=== PATIENT | male | born 1995 | race Caucasian/White ===

== ENCOUNTER 2019-02-23 22:39 | Emergency (ER) | payer SELFPAY ==
[~2019-02-23] VITALS: Ht 157.5 cm; Wt 60.9 kg
[2019-02-23 22:48] VITALS: Ht 157.5 cm; Wt 60.9 kg
[2019-02-24] MEDS ORDERED: CEPH-443 PO (00:48)
[2019-02-24] MEDS ORDERED: METR45GE3 TOP (00:50)
--- NOTE | 2019-02-24 00:51 | ERD ---
ER Documentation Chief Complaint Chief Complaint states penile swelling x 1 week HPI 24-year-old male presents the ED complaining of a swollen penis x1 week. He denies any previous history of similar events. He states that he is homeless and currently meth addict. He states that he used meth before he arrived to the emergency department. He reports 2 out of 10 pain in his penis. He states that he occasionally takes birdbath as his hygiene in order to stay clean since he is homeless. He states that he is uncircumcised. He denies any fevers or chills. He states he has had one sexual partner in the past month. He denies any testicular pain or any other symptoms at this time. He has not taken any medication for his symptoms He denies past medical history Patient is homeless Patient is a meth addict ROS All systems reviewed and are negative except as per history of present illness. Medications Home Meds Active Scripts Metronidazole (Metronidazole Gel) 0.75% - 45 Gm Gel..gram., 1 APPLIC TOP BID, #7 TUB Prov:VIRGILIO RUEDA PA-C 02/24/19 Cephalexin* (Keflex*) 500 Mg Capsule, 500 MG PO QID for 7 Days, CAP Prov:VIRGILIO RUEDA PA-C 02/24/19 Allergies Allergies: Coded Allergies: No Known Drug Allergies (Verified Allergy, Unknown, 02/23/19) PMhx/Soc Hx Cardiac Disorders: Yes (MURMUR) Hx Alcohol Use: No Hx Substance Use: Yes (MARIJUANA, METH 02/24/19) Hx Tobacco Use: Yes Smoking Status: Current every day smoker FmHx Family History: No diabetes Physical Exam Vitals Vital Signs Date Temp Pulse Resp B/P (MAP) Pulse Ox O2 O2 Flow FiO2 Time Delivery Rate 02/23/19 98.0 95 18 108/59 99 22:48 (75) Physical Exam Const: No acute distress Head: Atraumatic Neck: Full range of motion. Resp: Clear to auscultation bilaterally Cardio: Regular rate and rhythm, no murmurs Abd: Soft, non tender, non distended. Normal bowel sounds : No LAD, no testicular masses. Uncircumcised penis, with red, inflammed redness surrounding the gland. Crustiness on gland. Back: No midline or flank tenderness Procedures/MDM ED COURSE: The patient was stable throughout ED course. I kept the patient informed of lab oratory and diagnostic imaging results throughout the ED course. MEDICATIONS GIVEN: [None.] MEDICAL DECISION MAKING: Patient is a 24-year-old male complaining of swollen penis x1 week. I have low suspicion for testicular torsion, granulated hernia, incarcerated hernia, testicular cancer, epididymitis, urethritis, orchitis, prostatitis, phimosis, priapism, penile contusion. At this time I think patient is suffering from balanitis. He is uncircumcised and the surrounding area of his penis is dirty with smegma and crustiness. Patient had no signs of phimosis or paraphimosis or other emergent issues at this time. Patient was homeless and was counseled on clean hygiene. Patient was discharged with prescription for Keflex and Flagyl cream. vital signs were reviewed. Patient is afebrile. Patient was not hypoxic. Patient was hemodynamically stable. Patient was told to follow up with primary care for further care and management. PRESCRIPTION: Kelfex, Flagly gel DISCHARGE: At this time, patient is stable for discharge and outpatient management. I have instructed the patient to follow-up with his/her primary care physician in 1-2 days. I have discussed with the patient the possibility of needing to see a specialist for further workup and imaging studies if symptoms persist. I have instructed the patient to promptly return to the ER for any new or worsening symptoms including increased pain, fever, nausea, vomiting, weakness or LOC. The patient expressed understanding of and agreement with this plan. All questions were answered. Home care instructions were provided. Disclaimer: Inadvertent spelling and grammatical errors are likely due to EHR/dictation software use and do not reflect on the overall quality of patient care. Also, please note that the electronic time recorded on this note does not necessarily reflect the actual time of the patient encounter. Departure Diagnosis: Primary Impression: Balanitis Condition: Fair Patient Instructions: Balanitis Referrals: COMM[facility] YOU HAVE RECEIVED A MEDICAL SCREENING EXAM AND THE RESULTS INDICATE THAT YOU DO NOT HAVE A CONDITION THAT REQUIRES URGENT TREATMENT IN THE EMERGENCY DEPARTMENT. FURTHER EVALUATION AND TREATMENT OF YOUR CONDITION CAN WAIT UNTIL YOU ARE SEEN IN YOUR DOCTORS OFFICE WITHIN THE NEXT 1-2 DAYS. IT IS YOUR RESPONSIBILITY TO MAKE AN APPOINTMENT FOR FOLOW-UP CARE. IF YOU HAVE A PRIMARY DOCTOR --you should call your primary doctor and schedule an appointment IF YOU DO NOT HAVE A PRIMARY DOCTOR YOU CAN CALL OUR PHYSICIAN REFERRAL HOTLINE AT IF YOU CAN NOT AFFORD TO SEE A PHYSICIAN YOU CAN CHOSE FROM THE FOLLOWING [facility] [address] [facility] [address] [facility] [address] [facility] [address] [facility] [address] [facility] [facility] [address] [facility]. [facility] YOU HAVE RECEIVED A MEDICAL SCREENING EXAM AND THE RESULTS INDICATE THAT YOU DO NOT HAVE A CONDITION THAT REQUIRES URGENT TREATMENT IN THE EMERGENCY DEPARTMENT. FURTHER EVALUATION AND TREATMENT OF YOUR CONDITION CAN WAIT UNTIL YOU ARE SEEN IN YOUR DOCTORS OFFICE WITHIN THE NEXT 1-2 DAYS. IT IS YOUR RESPONSIBILITY TO MAKE AN APPOINTMENT FOR FOLOW-UP CARE. IF YOU HAVE A PRIMARY DOCTOR --you should call your primary doctor and schedule and appointment IF YOU DO NOT HAVE A PRIMARY DOCTOR YOU CAN CALL OUR PHYSICIAN REFERRAL HOTLINE AT . IF YOU CAN NOT AFFORD TO SEE A PHYSICIAN YOU CAN CHOSE FROM THE FOLLOWING [facility]: [facility] [id number] [place] [address] [facility] [address] [place] [address] [facility] [address] [place] [address] Additional Instructions: Call your primary care doctor TOMORROW for an appointment during the next 1-2 days.See the doctor sooner or return here if your condition worsens before your appointment time. VIRGILIO RUEDA PA-C Feb 24, 2019 00:51
[2019-02-24 01:15] VITALS: BP 115/61; PULSE 75; RESP 18
== END 2019-02-24 01:15 | disposition home or self-care (01) ==
LOC: FTE 22:39
DX: N48.1 Balanitis (principal); F17.210 Nicotine dependence, cigarettes, uncomplicated
CPT/HCPCS: 99283